=== PATIENT | female | born 1935 | race Caucasian/White ===

== ENCOUNTER 2019-09-19 07:09 | Inpatient (IN) | payer OTHER ==
[~2019-09-19] VITALS: Ht 144.8 cm; Wt 62.1 kg
[2019-09-19] MEDS ORDERED: ATORVASTATIN CA40 MG PO (07:36)
[2019-09-19] MEDS ORDERED: GLIMEPIRIDE4 M1 PO (07:37)
[2019-09-19] MEDS ORDERED: TRADJENTA5 MG PO (07:37)
[2019-09-19] MEDS ORDERED: ZESTRIL40 M1 PO (07:38)
[2019-09-19] MEDS ORDERED: FORTAMET1000 MG PO (07:39)
[2019-09-27] MEDS ORDERED: CLONIDINE HCL0.2 MG PO (12:02)
[2019-09-27] MEDS ORDERED: MECLIZINE HCL12.5 MG PO (12:02)
[2019-09-27] MEDS ORDERED: Lantus 1000 UNITS/10 SUBCUTANEO (12:02)
[2019-09-27] MEDS ORDERED: ELIQUIS2.5 MG PO (12:02)
[2019-09-27] MEDS ORDERED: GLIMEPIRIDE4 M1 PO (12:02)
[2019-09-27] MEDS ORDERED: METOPROLOL TART50 MG PO (12:02)
[2019-09-27] MEDS ORDERED: AMLODIPINE BESYL5 MG PO (12:02)
[2019-09-27] MEDS ORDERED: ATORVASTATIN CA40 MG PO (12:02)
== END 2019-09-27 15:07 | disposition home or self-care (01) | DRG 291 ==
LOC: ER 07:09 → SEC-K 17:52 → SURH 17:52
PROVIDERS: ADMIT Internal Medicine; ATTEND Internal Medicine
PROC: 4A033R1 Measurement of Arterial Saturation, Peripheral, Percutaneous Approach (ICD-10-PCS; 2019-09-19)
PROC: BW28ZZZ Computerized Tomography (CT Scan) of Head (ICD-10-PCS; 2019-09-19)
PROC: CB2YYZZ Tomographic (Tomo) Nuclear Medicine Imaging of Respiratory System using Other Radionuclide (ICD-10-PCS; 2019-09-19)
PROC: BW40ZZZ Ultrasonography of Abdomen (ICD-10-PCS; 2019-09-19)
PROC: B24BZZZ Ultrasonography of Heart with Aorta (ICD-10-PCS; principal; 2019-09-20)
PROC: 4A12X4Z Monitoring of Cardiac Electrical Activity, External Approach (ICD-10-PCS; 2019-09-20)
PROC: B348ZZZ Ultrasonography of Bilateral Internal Carotid Arteries (ICD-10-PCS; 2019-09-23)
DX: I11.0 Hypertensive heart disease with heart failure (principal); J18.9 Pneumonia, unspecified organism; E87.2 Acidosis; E87.3 Alkalosis; N39.0 Urinary tract infection, site not specified; N17.9 Acute kidney failure, unspecified; I50.33 Acute on chronic diastolic (congestive) heart failure; I48.91 Unspecified atrial fibrillation; R09.02 Hypoxemia; E86.0 Dehydration; K81.1 Chronic cholecystitis; H81.10 Benign paroxysmal vertigo, unspecified ear; E11.9 Type 2 diabetes mellitus without complications; N28.9 Disorder of kidney and ureter, unspecified

== ENCOUNTER 2019-10-30 09:34 | Inpatient (IN) | payer OTHER ==
[~2019-10-30] VITALS: Ht 152.4 cm; Wt 72.6 kg
[~2019-10-30 09:34] MED LIST: AMLODIPINE BESYL5 MG PO; ATORVASTATIN CA40 MG PO; CLONIDINE HCL0.2 MG PO; ELIQUIS2.5 MG PO; FORTAMET1000 MG PO; GLIMEPIRIDE4 M1 PO; Lantus 1000 UNITS/10 SUBCUTANEO; MECLIZINE HCL12.5 MG PO; METOPROLOL TART50 MG PO; TRADJENTA5 MG PO; ZESTRIL40 M1 PO
--- NOTE | 2019-10-30 09:34 | NUR ---
SE RECIBE PACIENTE ALERTA, EN AMBULANCIA, AL MOMENTO EN COMPANIA DE PARAMEDICOS QUIENES REFIEREN AZUCAR BAJA. PACIENTE LLEGA CON DIFICULTAD RESPIRATORIA, ASISTIDA CON CANULA NASAL A 3 LT REGISTRANDO CHITRA SATURACION DE 98%. PARAMEDICOS REFIEREN QUE ADMINISTRARON GLUCAGON IM Y 15 MIN DESPUES DE LA ADMINISTRACION EL DXT SE ENCONTRABA EN 65MG/DL.
--- NOTE | 2019-10-30 13:45 | NUR ---
LLEGA PACIENTE EN AMBULANCIA JUNTO CON PARAMEDICOS. SE OBSERVA LETARGICA Y CON DISTRESS RESPIRATORIO,SE OBSERVA FRIA Y SUDOROSA , SE TRASNPORTA A LA UNICAD DE CRITICO ,MISS. WOODSONS CANALIZA PACIENTE EN MNAO DERECHA PATENTE Y ZAYNAB DXT CON RESULTADOS LO SE LE NOTIFICA A DR. VALLADARES QUIEN POR ORDEN MEDICA ADMINITRAR 2 AMPOLLETAS DE DEXTROSA H2O 25G IV PUSH. SE ZAYNAB DXT 223MG/DL MR. HERNANDEZERO TOMAMUESTARS D ENSAGRE Y COLOCA EL WOLFE CATHETER CON BITA MEDIDAS ASEPTICAS EL CUAL S EOBSERVA CON POCO DRENAJE DE ORINA COLOR AMARILLO INTENSO .PACIENTE COMBATIVA CON DIFICULTAD RESPIRATORIA. 945AM SE ACTIVA CLAVE DEEPA PARA AREA DE CRITICO PACIENTE ENTUBADO POR ANESTESIA POR MR.ALAN GARRETT CON TUBO 7MM ENDOTRAQUEAL FIJADO EN [id number] CONECTADA A VENTILADOR MECANICO MODO AC VT 450 RR-12 PF 55 PEEP 5 O2 100% 1003AM DXT 248MG/DL PACIENTE SE MNATIEINE OBSERVACION PO RCAMBIOS EN VINCENT CONDICION EN CONSULTA CON EL 7065 MISS [place] TR NOTIICA RESULTADO AUTOMOBILE WASHER STEAM ABGS AL DR. VILLARREALA LUEGO DE ENTUBADA LA PACIENTE EL CUAL REALIZA CAMBIOS DE PARAMETROS EN O2 A 50% SE MANTIEIEN OBSERVACION PO RCMABIOS EN VINCENT CONDICON.
== END 2019-12-04 23:00 | disposition expired | DRG 207 ==
LOC: ER 09:34 → ICU-2 15:11 → ICU 11-02 21:59
PROVIDERS: ADMIT Internal Medicine; ATTEND Internal Medicine
PROC: 0BH17EZ Insertion of Endotracheal Airway into Trachea, Via Natural or Artificial Opening (ICD-10-PCS; principal; 2019-10-30)
PROC: 5A1955Z Respiratory Ventilation, Greater than 96 Consecutive Hours (ICD-10-PCS; 2019-10-30)
PROC: 4A033R1 Measurement of Arterial Saturation, Peripheral, Percutaneous Approach (ICD-10-PCS; 2019-10-30)
PROC: B24BZZZ Ultrasonography of Heart with Aorta (ICD-10-PCS; 2019-10-30)
PROC: 02HV33Z Insertion of Infusion Device into Superior Vena Cava, Percutaneous Approach (ICD-10-PCS; 2019-11-01)
PROC: 4A00X4Z Measurement of Central Nervous Electrical Activity, External Approach (ICD-10-PCS; 2019-11-11)
DX: J96.01 Acute respiratory failure with hypoxia (principal); A41.9 Sepsis, unspecified organism; K72.00 Acute and subacute hepatic failure without coma; B37.1 Pulmonary candidiasis; J15.1 Pneumonia due to Pseudomonas; G93.41 Metabolic encephalopathy; I50.33 Acute on chronic diastolic (congestive) heart failure; I21.A1 Myocardial infarction type 2; I13.0 Hypertensive heart and chronic kidney disease with heart failure and stage 1 through stage 4 chronic kidney disease, or unspecified chronic kidney disease; E87.2 Acidosis; B37.49 Other urogenital candidiasis; N17.9 Acute kidney failure, unspecified; E11.649 Type 2 diabetes mellitus with hypoglycemia without coma; D64.9 Anemia, unspecified; I48.91 Unspecified atrial fibrillation; N18.9 Chronic kidney disease, unspecified; Z79.4 Long term (current) use of insulin; T38.3X5A Adverse effect of insulin and oral hypoglycemic [antidiabetic] drugs, initial encounter; I35.0 Nonrheumatic aortic (valve) stenosis; H81.10 Benign paroxysmal vertigo, unspecified ear; Z20.828 Contact with and (suspected) exposure to other viral communicable diseases